=== PATIENT | male | born 1945 | race Caucasian/White ===

== ENCOUNTER 2018-07-04 08:54 | Day surgery (SDC) | payer MEDICARE ==
[~2018-07-04] VITALS: Ht 177.8 cm; Wt 80.6 kg
[~2018-07-04 08:54] MED LIST: Aspir 8181 MG PO; Azor 5-20 MG T1 EACH PO
== END 2018-07-04 11:10 | disposition home or self-care (01) ==
LOC: ORSCSDS 08:54
PROVIDERS: Surgery
PROC: 0DBP8ZX Excision of Rectum, Via Natural or Artificial Opening Endoscopic, Diagnostic (ICD-10-PCS; principal; 2018-07-04 10:15)
DX: Z12.11 Encounter for screening for malignant neoplasm of colon (principal); K62.1 Rectal polyp; Z86.010 Personal history of colon polyps; I10 Essential (primary) hypertension; F17.210 Nicotine dependence, cigarettes, uncomplicated; Z79.82 Long term (current) use of aspirin; Z79.899 Other long term (current) drug therapy
CPT/HCPCS: 88305; J7120

== ENCOUNTER → 2022-09-11 | Outpatient (CLI) | payer MEDICARE | LOC: LAB SHORT 15:28 → LAB 15:28 | DX: L08.9 Local infection of the skin and subcutaneous tissue, unspecified (principal) | CPT/HCPCS: 87070; 87205 ==